=== PATIENT | female | born 1985 | race Caucasian/White ===

== ENCOUNTER 2017-05-14 01:35 | Emergency (ER) | payer SELFPAY ==
[~2017-05-14] VITALS: Ht 157.5 cm; Wt 81.0 kg
[2017-05-14 01:40] VITALS: BP 0/0
== END 2017-05-14 02:09 | disposition left against medical advice (07) ==
LOC: EDBD 01:40 → ER 01:40
DX: R41.82 Altered mental status, unspecified (principal); Y09 Assault by unspecified means; Y93.89 Activity, other specified; Y92.89 Other specified places as the place of occurrence of the external cause; Y99.8 Other external cause status
CPT/HCPCS: 99283